=== PATIENT | male | born 2005 | race Hispanic/Latino ===

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

== ENCOUNTER 2024-11-25 10:29 | Inpatient (IN) | payer SELFPAY ==
[2024-11-25 11:30] LABS: Actual Bicarbonate (HCO3v) 26.1 mEq/L (22-28); Base Excess -0.4 mEq/L (-2.0 to +3.0); Calcium, Ionized (venous) 1.20 mmol/L (1.16-1.32); Chloride (VBG) 93 mmol/L (98-106); Hematocrit-VBG 52 % (42.0-52.0); Hemoglobin (Hb) 17.6 g/dL (13.2-17.3); Potassium (VBG) 3.93 mmol/L (3.70-5.30); Sodium 132 mmol/L (133-146)
[2024-11-25 11:43] LABS: #Basophils 0.03 10x3/uL (0.0-0.2); #Eosinophils 0.10 10x3/uL (0.0-0.7); #Monocytes 0.38 10x3/uL (0.11-0.59); #Neutrophils 2.96 10x3/uL (1.40-6.50); %Basophils 0.5 % (0.0-1.0); %Eosinophils 1.8 % (0.0-10.0); %Lymphocytes 37.9 % (28.0-48.0); %Monocytes 6.7 % (0.0-4.0); %Neutrophils 52.6 % (31.0-61.0); Hematocrit 44.9 % (42.0-52.0); Hemoglobin 16.2 g/dL (14.0-18.0); Mean Corpuscular Hemoglobin 29.5 pg (25.0-35.0); Mean Corpuscular Volume 81.8 fL (78.0-98.0); Platelet Count 249 10x3/uL (130-400); Red Blood Cell (RBC) Count 5.49 mill/uL (4.00-5.20); White Blood Cell (WBC) Count 5.64 10x3/uL (4.8-10.8)
[2024-11-25 12:09] LABS: Troponin I Less than 0.010 ng/mL (< 0.028)
[2024-11-25 12:10] LABS: ALT (SGPT) 15 U/L (Less than 45); AST (SGOT) 20 U/L (11-34); Albumin 4.5 g/dL (3.1-4.5); Alkaline Phosphatase 171 U/L (50-130); Anion Gap 15 mmol/L (10-20); BUN (Urea Nitrogen) 10 mg/dL (8.9-20.6); Bilirubin, Total 1.1 mg/dL (0.3-1.2); Calc. Creatinine Clearance 0 mL/min (70-130); Calcium 9.3 mg/dL (7.8-10.44); Carbon Dioxide 26 mmol/L (22-29); Chloride 94 mmol/L (98-107); Globulin 2.8 g/dL (2.4-3.5); Glucose 729 mg/dL (70-105); Lipase 22 U/L (8-78); Magnesium 1.8 mg/dL (1.7-2.2); Potassium 3.7 mmol/L (3.5-5.1); Sodium 131 mmol/L (136-145)
[2024-11-25 12:15] LABS: Bacteria/HPF None Seen HPF (None Seen); CAUTI Indications for Culture Pelvic or flank pain; Glucose, Urine (Dipstick) Greater than 1000 mg/dL (Negative); Leukocyte Negative Leu/uL (Negative); Protein, Urine (Dipstick) Negative (Neg-Trace); RBC/HPF 0-3 HPF (0-3); Specific Gravity, Urine 1.037 (1.002-1.036); WBC/HPF 0-3 HPF (0-3)
[2024-11-25 12:22] LABS: Urine Culture Reflex No No
[2024-11-25 14:40] LABS: Osmolality, Serum 311 mOsm/kg (275-295)
[2024-11-25] MEDS ORDERED: Glucagon 1 MG/ML KIT IM PRN (14:49)
[2024-11-25] MEDS ORDERED: Ondansetron PF 4 MG/2 ML Vial IVP PRN (14:49)
[2024-11-25] MEDS ORDERED: Dextrose 50% Abboject 50 ML SYRINGE SLOW IVP PRN (14:49)
[2024-11-25 15:28] VITALS: BMI 20.1
[2024-11-25] MEDS: Famotidine 20 MG TAB PO SCH (20:58)
[2024-11-25] MEDS: Gabapentin 100 MG CAP PO SCH (20:58)
[2024-11-25] MEDS: Insulin Glargine 30 UNITS/0.3 ML VIAL SC SCH (20:59)
[2024-11-26 06:20] LABS: #Basophils 0.04 10x3/uL (0.0-0.2); #Eosinophils 0.10 10x3/uL (0.0-0.7); #Monocytes 0.41 10x3/uL (0.11-0.59); #Neutrophils 3.86 10x3/uL (1.40-6.50); %Basophils 0.6 % (0.0-1.0); %Eosinophils 1.4 % (0.0-10.0); %Lymphocytes 36.0 % (28.0-48.0); %Monocytes 5.9 % (0.0-4.0); %Neutrophils 55.5 % (31.0-61.0); Hematocrit 42.4 % (42.0-52.0); Hemoglobin 15.3 g/dL (14.0-18.0); Mean Corpuscular Hemoglobin 29.9 pg (25.0-35.0); Mean Corpuscular Volume 83.0 fL (78.0-98.0); Platelet Count 242 10x3/uL (130-400); Red Blood Cell (RBC) Count 5.11 mill/uL (4.00-5.20); White Blood Cell (WBC) Count 6.95 10x3/uL (4.8-10.8)
[2024-11-26 06:40] LABS: Anion Gap 11 mmol/L (10-20); BUN (Urea Nitrogen) 7 mg/dL (8.9-20.6); Calc. Creatinine Clearance 149 mL/min (70-130); Calcium 8.7 mg/dL (7.8-10.44); Carbon Dioxide 25 mmol/L (22-29); Chloride 108 mmol/L (98-107); Glucose 122 mg/dL (70-105); Potassium 2.8 mmol/L (3.5-5.1); Sodium 141 mmol/L (136-145)
[2024-11-26] MEDS: Potassium Chloride 20 MEQ in Premix 1 BAG IVPB SCH (08:50)
[2024-11-26] MEDS: Magnesium Oxide 400 MG TAB PO SCH (08:50)
[2024-11-26 13:18] LABS: Potassium 3.9 mmol/L (3.5-5.1)
[2024-11-27] MEDS: Insulin Glargine 30 UNITS/0.3 ML VIAL SC SCH (08:13)
[2024-11-27] MEDS: Acetaminophen 325 MG TAB PO PRN (10:54)
[2024-11-27] MEDS: Gabapentin 300 MG CAP PO SCH (11:32)
[2024-11-27 15:29] VITALS: BP 110/77; TEMP 98
== END 2024-11-27 15:57 | disposition home or self-care (01) | DRG 639 ==
LOC: ERS 10:29 → T4-B 13:10 → OBSVTOIN 11-26 16:08
PROVIDERS: ADMIT Internal Medicine; ATTEND Family Medicine
DX: E11.65 Type 2 diabetes mellitus with hyperglycemia (principal); E87.6 Hypokalemia; Z83.3 Family history of diabetes mellitus; Z91.148 Patient's other noncompliance with medication regimen for other reason
CPT/HCPCS: 36415; 36416; 71045; 80048; 80053; 81001; 82010; 82805; 83036; 83605; 83690; 83735; 83930; 84100; 84484; 85025; 93005; 96361; 96374; 96375; G0378; J1815; J3480; J7120